=== PATIENT | female | born 1955 | race Caucasian/White ===

== ENCOUNTER 2016-10-19 06:13 | Emergency (ER) | payer BC ==
[2016-10-19 06:51] VITALS: BP 182/77
[2016-10-19] MEDS ORDERED: Ketorolac INJ* 30 MG/ML 1 ML VIAL IV ONE (07:10)
[2016-10-19 07:30] LABS: Hematocrit 42 % (35-47); Hemoglobin 13.8 g/dl (12.0-16.0); Mean Corpuscular HGB Conc 33 g/dl (31-36); Mean Corpuscular Hemoglobin 29 pg (27-31); Mean Corpuscular Volume 88 fL (80-97); Mean Platelet Volume 9 um3 (7.4-10.4); Red Blood Count 4.76 10^6/ul (4.0-5.4); Red Cell Distribution Width 14 % (10.5-15); White Blood Count 4.5 10^3/ul (3.5-10.8)
--- NOTE | 2016-10-19 07:30 | ED ---
Back Pain - HPI Summary HPI Summary: Patient presents with right lower back pain that began yesterday without injury. She had a similar episode around [place], she related to eating too much cheese, and resolved in about a week without known intervention. 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 She notices the pain when she bends, takes a deep breath, coughs, or lifts heavy objects. Her pain actually improves when she's up moving around. She denies previous injury to her back. No N/T, inability to walk, incontinence of urine or stool. No abdominal pain, urinary symptoms, constipation or flank pain. No fever, chills, N/V/D, but she did have two loose stools this AM. - History of Current Complaint Chief Complaint: EDFlankPain Stated Complaint: LOWER RT BACK PAIN Time Seen by Provider: 10/19/16 06:45 Hx Obtained From: Patient, Family/Dye And Chemical Coordinator Onset/Duration: Gradual Onset Onset/Duration: Started Days Ago - 1, Atraumatic, Still Present Timing: Constant Back Pain Location: Is Discrete @ - right SI joint Severity Initially: Moderate Severity Currently: Severe Pain Intensity: 9 Character: Sharp, Aching, Stiffness Aggravating Symptom(s): Movement, Bending Alleviating Symptom(s): Position Associated Signs And Symptoms: Positive: Negative - Allergies/Home Medications Allergies/Adverse Reactions: Allergies Allergy/AdvReac Type Severity Reaction Status Date / Time Codeine Allergy Vomiting Verified 10/19/16 06:45 Erythromycin Allergy Rash Verified 10/19/16 06:45 Morphine Allergy Vomiting Verified 10/19/16 06:45 PMH/Surg Hx/FS Hx/Imm Hx Endocrine/Hematology History: Denies: Hx Diabetes, Hx Thyroid Disease Cardiovascular History: Reports: Hx Hypertension Respiratory History: Denies: Hx Asthma, Hx Chronic Obstructive Pulmonary Disease (COPD) GI History: Denies: Hx Ulcer - Cancer History Hx Chemotherapy: No Hx Radiation Therapy: No - Surgical History Surgery Procedure, Year, and Place: hysterectomy,carpal tunnel, csrection Infectious Disease History: No Infectious Disease History: Denies: Hx Clostridium Difficile, Hx Hepatitis, Hx Human Immunodeficiency Virus (HIV), Hx of Known/Suspected MRSA, Hx Shingles, Hx Tuberculosis, Hx Known/ Suspected VRE, Hx Known/Suspected VRSA, Traveled Outside the [place] in Last 30 Days - Family History Known Family History: Positive: None - Social History Occupation: Employed Full-time Lives: With Family Alcohol Use: None Substance Use Type: Reports: None Smoking Status (MU): Never Smoked Tobacco Review of Systems Negative: Fever, Chills Negative: Chest Pain Negative: Shortness Of Breath Negative: Abdominal Pain Positive: Myalgia, Decreased ROM. Negative: Edema Negative: Bruising Negative: Weakness, Paresthesia, Numbness All Other Systems Reviewed And Are Negative: Yes Physical Exam Triage Information Reviewed: Yes Vital Signs On Initial Exam: Initial Vitals Temp Pulse Resp BP Pulse Ox 98.3 F 74 20 167/85 100 10/19/16 06:25 10/19/16 06:25 10/19/16 06:25 10/19/16 06:25 10/19/16 06:25 Vital Signs Reviewed: Yes Appearance: Positive: Well-Appearing, Well-Nourished, Pain Distress Skin: Positive: Warm, Skin Color Reflects Adequate Perfusion, Dry, Soft Head/Face: Positive: Normal Head/Face Inspection Eyes: Positive: EOMI, GIOVANA, Conjunctiva Clear ENT: Positive: Hearing grossly normal Neck: Positive: Supple, Nontender, No Lymphadenopathy Respiratory/Lung Sounds: Positive: Clear to Auscultation, Breath Sounds Present Cardiovascular: Positive: RRR Abdomen Description: Positive: Nontender, Soft. Negative: CVA Tenderness (R), CVA Tenderness (L), Distended, Guarding Bowel Sounds: Positive: Present Musculoskeletal: Positive: Limited @ - spine flexion, extension, and rotation limited due to pain, Pain @ - TTP right SI joint; non-tender over right buttock , left SI joint or left buttock; Neurological: Positive: Sensory/Motor Intact, Alert, Oriented to Person Place, Time, Reflexes Intact, NV Bundle Intact Distally, Abnormal Gait Psychiatric: Positive: Affect/Mood Appropriate AVPU Assessment: Alert - Zoila Coma Scale Coma Scale Total: 15 Diagnostics - Vital Signs Vital Signs Temp Pulse Resp BP Pulse Ox 10/19/16 06:30 64 182/77 98 10/19/16 06:25 98.3 F 74 20 167/85 100 - Laboratory Result Diagrams: 10/19/16 06:40 10/19/16 06:40 Lab Statement: Any lab studies that have been ordered have been reviewed, and results considered in the medical decision making process. - Radiology No standard instances Xray Interpretation: No Acute Changes Radiology Interpretation Completed By: Radiologist Re-Evaluation - Re-Evaluation First Eval Re-Evaluation Time: 09:40 Change: Improved - Pain improved with Toradol Back Pain Course/Dx - Diagnoses Differential Diagnosis/HQI/PQRI: Positive: Aneurysm, Cauda Equina Syndrome, Herniated Disc, Strain, Sprain Provider Diagnoses: Low back pain Discharge - Discharge Plan Condition: Stable Disposition: HOME Patient Education Materials: Low Back Strain (ED) Referrals: Sarah Chakraborty MD [Primary Care Provider] - Additional Instructions: Please use 600mg of ibuprofen three times daily with meals beginning tomorrow. Rest and use heat to allow your back to feel better. Follow-up with your primary care provider next week for evaluation. Return to the emergency department if your symptoms worsen.
[2016-10-19 07:31] LABS: Add Diff/Slide Review? Slide Review Added; Comments Flag Yes
[2016-10-19 07:35] LABS: ALT 15 U/L (7-52); AST 19 U/L (13-39); Albumin 4.4 g/dL (3.2-5.2); Alkaline Phosphatase 71 U/L (34-104); Anion Gap 6 mmol/L (2-11); BUN/Creatinine Ratio 17.3 (8-20); Blood Urea Nitrogen 13 mg/dL (6-24); C Reactive Protein < 1.00 mg/L (< 5.00); CO2 Carbon Dioxide 31 mmol/L (22-32); Calcium 10.3 mg/dL (8.6-10.3); Chloride 102 mmol/L (101-111); EGFR African American 101.7 (>60); EGFR Non-African American 79.1 (>60); Globulin 2.9 g/dL (2-4); Glucose 107 mg/dL (70-100); Potassium 4.2 mmol/L (3.5-5.0); Sodium 139 mmol/L (133-145); Total Protein 7.3 g/dL (6.4-8.9)
--- NOTE | 2016-10-19 08:02 | RAD ---
Indication: RIGHT sacroiliac joint pain; recurrent. Radiates to the RIGHT side of the back. Comparison: No relevant prior exams available on the [facility]. Technique: AP, lateral, and oblique views lumbar sacral spine. Report: Slight LEFT convex curve centered at L1-2. Negative for fracture, spondylolysis, or focal osseous lesion. Mild L4-5 disc space narrowing, multilevel facet joint osteoarthritis from L2-3 through L5-S1. Minimal grade 1 degenerative L4-5 anterolisthesis. Unremarkable bilateral sacroiliac joints. Unremarkable paraspinal soft tissue contours. IMPRESSION: 1. Mild degenerative spondylosis and facet joint osteoarthritis. 2. Unremarkable sacroiliac joints.
[2016-10-19 08:45] LABS: Urine Bilirubin Negative (Negative); Urine Glucose Negative (Negative); Urine Nitrite Negative (Negative)
== END 2016-10-19 09:57 | disposition home or self-care (01) ==
LOC: ED 06:13
DX: M54.5 Low back pain (principal); Z88.5 Allergy status to narcotic agent
CPT/HCPCS: 36415; 72110; 80053; 81003; 85025; 86140; 96374; J1885

== ENCOUNTER 2017-11-05 07:57 | Emergency (ER) | payer SELFPAY ==
[2017-11-05 08:12] VITALS: BP 152/76
--- NOTE | 2017-11-05 09:09 | RAD ---
Indication: Dizziness post fall hitting posterior head. Decreased ecchymosis since fall. Comparison: No relevant prior exams available on the [facility] for comparison. Technique: Noncontrast CT vertex of skull through foramen magnum. Report: Approximate 1 cm RIGHT parietal vertex scalp hematoma. The sulci, ventricles, and basal cisterns are normal for age. Arzate matter white matter differentiation is preserved without evidence for edema. No intra or extra axial hemorrhage, mass, or fluid collection detected. Unremarkable visualized orbital contents. Negative for calvarial or skull base fracture. The visualized paranasal sinuses and mastoid air spaces are clear. IMPRESSION: 1. Small RIGHT parietal vertex scalp hematoma. 2. Negative for fracture. 3. No CT evidence for traumatic brain injury.
--- NOTE | 2017-11-05 09:16 | UC ---
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 Negative: LOC (Time In Secs./Mins/Hrs), LOC Duration Unknown, Confusion, Memory Loss, Seizure, Epistaxis, Dental Malocclusion, Nausea, Vomiting Head: 1 - small hematoma 2 - tender 3 - tender - Allergies/Home Medications Allergies/Adverse Reactions: Allergies Allergy/AdvReac Type Severity Reaction Status Date / Time codeine Allergy vomit Verified 11/05/17 08:07 erythromycin base Allergy Rash Verified 11/05/17 08:08 morphine Allergy vomit Verified 11/05/17 08:07 PMH/Surg Hx/FS Hx/Imm Hx Previously Healthy: Yes - Surgical History Surgical History: Yes Surgery Procedure, Year, and Place: hysterectomy,carpal tunnel, - Family History Known Family History: Positive: Hypertension - Social History Alcohol Use: None Substance Use Type: None Smoking Status (MU): Never Smoked Tobacco Review of Systems Constitutional: Negative Skin: Negative Eyes: Negative ENT: Negative Respiratory: Negative Cardiovascular: Negative Gastrointestinal: Negative Genitourinary: Negative Motor: Negative Neurovascular: Negative Musculoskeletal: Negative Neurological: Headache Psychological: Negative Is Patient Immunocompromised?: No All Other Systems Reviewed And Are Negative: Yes Physical Exam Triage Information Reviewed: Yes Appearance: Well-Appearing, No Pain Distress, Well-Nourished Vital Signs: Initial Vital Signs Temp 98.7 F 11/05/17 08:09 Pulse 56 11/05/17 08:09 Resp 16 11/05/17 08:09 BP 152/76 11/05/17 08:09 Pulse Ox 100 11/05/17 08:09 Vital Signs Reviewed: Yes Eyes: Positive: Conjunctiva Clear ENT: Positive: Hearing grossly normal, TMs normal - left OK/right unable to vis due to cerumen. Negative: Nasal congestion, Nasal drainage, Dental tenderness, Sinus tenderness, Uvula midline Neck: Positive: Supple, Nontender Respiratory: Positive: Lungs clear, Normal breath sounds, No respiratory distress Cardiovascular: Positive: RRR, No Murmur Musculoskeletal: Positive: ROM Intact, No Edema Neurological: Positive: Alert, Muscle Tone Normal, Other: - GCS 15/15, slightly unsteady wide based gait Psychological Exam: Normal Skin Exam: Normal Head Injury Course/Dx - Differential Dx/Diagnosis Provider Diagnoses: concussion. cervical strain. scalp contusion Discharge - Discharge Plan Condition: Stable Disposition: HOME Patient Education Materials: Concussion (ED) Forms: *Work Release Referrals: Sarah Chakraborty MD [Primary Care Provider] - Additional Instructions: rest tylenol ice recheck this weekend unless you are completely symptom free
== END 2017-11-05 09:32 | disposition home or self-care (01) ==
LOC: UCEAST 07:57
DX: S06.0X0A Concussion without loss of consciousness, initial encounter (principal); S16.1XXA Strain of muscle, fascia and tendon at neck level, initial encounter; S00.03XA Contusion of scalp, initial encounter; W00.0XXA Fall on same level due to ice and snow, initial encounter; Y92.9 Unspecified place or not applicable; Z88.5 Allergy status to narcotic agent; Z88.3 Allergy status to other anti-infective agents
CPT/HCPCS: 70450; 99211; G0463

== ENCOUNTER 2017-11-11 07:35 | Emergency (ER) | payer SELFPAY ==
[2017-11-11 07:55] VITALS: BP 113/73
--- NOTE | 2017-11-19 07:40 | UC ---
Terry Cristobal Nikita, scribed for Ester Arnold DO on 11/11/17 at 0808 . Head Injury HPI - HPI Summary HPI Summary: This patient is a 61 year old F presenting to [facility] with a chief complaint of head pain re-check since 11/05/17 s/p being seen at [facility]. Pt fell on ice and hit the back of her head on 11/03/17. The CC is described as off in the head and alleviated a bit since onset. The patient rates the pain 0/10 in severity. Symptoms aggravated by nothing. Symptoms alleviated by nothing. Patient reports head pain, aphasia after onset but has since alleviated, fatigue, cough ( secondary to cold since yesterday), mild confusion, [place] (secondary to cough), dizziness (aggravated by turning her head), and trouble falling back asleep ( secondary to head pain). Patient denies mood, vision, and hearing changes. - History Of Current Complaint Chief Complaint: UCHeadInjury Stated Complaint: HEAD PAIN FROM INJURY RECHECK Time Seen by Provider: 11/11/17 07:56 Hx Obtained From: Patient Onset/Duration: Sudden Onset, Lasting Days, Resolved Severity Currently: None Pain Intensity: 0 Pain Scale Used: 0-10 Numeric Aggravating Factor(s): Nothing Alleviating Factor(s): Nothing Associated Signs And Symptoms: Positive: Other - Patient reports head pain, aphasia after onset but has since alleviated, fatigue, cough (secondary to cold since yesterday), mild confusion, [place] (secondary to cough), dizziness ( aggravated by turning her head), and trouble falling back asleep (secondary to head pain). Patient denies mood, vision, and hearing changes. - Allergies/Home Medications Allergies/Adverse Reactions: Allergies Allergy/AdvReac Type Severity Reaction Status Date / Time codeine Allergy vomit Verified 11/05/17 08:07 erythromycin base Allergy Rash Verified 11/05/17 08:08 morphine Allergy vomit Verified 11/05/17 08:07 Home Medications: Home Medications Atenolol TAB* [Tenormin TAB* 25 MG] 25 mg PO DAILY 11/11/17 [History Confirmed 11/11/17] PMH/Surg Hx/FS Hx/Imm Hx Cardiovascular History: Hypertension Respiratory History: Bronchitis - Surgical History Surgical History: Yes Surgery Procedure, Year, and Place: hysterectomy,carpal tunnel, , rotator cuff - Family History Known Family History: Positive: Hypertension, Other Family History: breast CA - Social History Alcohol Use: Occasionally Substance Use Type: None Smoking Status (MU): Never Smoked Tobacco Review of Systems Constitutional: Fatigue Eyes: Other - denies vision changes ENT: Other - denies hearing changes Respiratory: Cough - secondary to cold since yesterday Musculoskeletal: Other: - head pain Neurological: Other - mild confusion, [place] (secondary to cough), dizziness ( aggravated by turning her head), and trouble falling back asleep (secondary to head pain), aphasia after onset but has since alleviated Psychological: Other - denies mood changes All Other Systems Reviewed And Are Negative: Yes Physical Exam Triage Information Reviewed: Yes Appearance: Well-Appearing, No Pain Distress, Well-Nourished Vital Signs: Initial Vital Signs Temp 98.7 F 11/11/17 07:44 Pulse 70 11/11/17 07:44 Resp 16 11/11/17 07:44 BP 113/73 11/11/17 07:44 Pulse Ox 98 11/11/17 07:44 Vital Signs Reviewed: Yes Eyes: Positive: Conjunctiva Clear. Negative: Discharge ENT: Positive: Hearing grossly normal. Negative: Muffled voice, Hoarse voice Neck exam: Normal Neck: Positive: Supple Respiratory: Positive: Lungs clear, Normal breath sounds, No respiratory distress, No accessory muscle use Cardiovascular: Positive: RRR, No Murmur Musculoskeletal Exam: Normal Neurological: Positive: Alert, Muscle Tone Normal, Other: - Tenderness to palpation over the occipital eminence; A&Ox3, CN II-XII INTACT, SENSORY MOTOR INTACT, REFLEXES INTACT, NO CEREBELLAR SIGNS, FACIAL SYMMETRY, NEGATIVE [place]BER[place] , NORMAL GAIT Psychological Exam: Normal Psychological: Positive: Age Appropriate Behavior Skin Exam: Normal, Other - Warm, Dry, Normal color Head Injury Course/Dx - Course Course Of Treatment: Patient will be discharged and follow up from PCP. The patient is agreeable with this plan. Medications reviewed. Allergies reviewed. - Differential Dx/Diagnosis Differential Diagnosis/HQI/PQRI: Other - Concussion and post-concussion syndrome Provider Diagnoses: concussion and post-concussion syndrome Discharge - Discharge Plan Condition: Stable Disposition: HOME Patient Education Materials: Concussion (ED), Post Concussion Syndrome (ED) Forms: *Work Release Referrals: Sarah Chakraborty MD [Primary Care Provider] - (Follow up in 1-3 days) Additional Instructions: At [facility], you were instructed to be on brain rest until all your symptoms are gone. That means no more TV, no talking with friends on the phone, no reading, and any other kinds of activities that may stimulate your brain. When your symptoms are gone completely, you can start with small activities like reading for 15 minutes. If you continue to be symptom free, you can gradually increase the amount of time you spend doing something or try different activities to 30 minutes then an hour and so on. If at any point your symptoms return, then we recommend that you continue to be on brain rest. Remember, people who give themselves brain rest as completely as possible are the ones who are least likely to have chcf symptoms. Go home and be bored. As discussed, we can reccomend 2 modalities that might help you recover from concussion more quickly: accupuncture and osteopathy. The following are 3 are 3 local accupuncturists [facility] - Alysia Olguin L.Ac. Acupuncture clinic in [place], [place] Address: [address] [place] [address] [facility] Acupuncture clinic in [place], [place] Address: [address] [place] [address] [facility] and Humaira Noland [phone] YOU WOULD LIKELY BENEFIT FROM OSTEOPATHIC MANIPULATION. WE RECOMMEND THAT YOU FIND AN OSTEOPATHIC PHYSICIAN IN YOUR AREA WHO DOES LYMPHATIC, MYOFACIAL AND VISCERAL WORK The documentation as recorded by the Terry dong Nikita accurately reflects the service I personally performed and the decisions made by , Ester Arnold DO.
== END 2017-11-11 09:01 | disposition home or self-care (01) ==
LOC: UCEAST 07:35
DX: F07.81 Postconcussional syndrome (principal); G44.309 Post-traumatic headache, unspecified, not intractable; R53.83 Other fatigue; R05 Cough; I10 Essential (primary) hypertension; Z88.5 Allergy status to narcotic agent
CPT/HCPCS: 99211; G0463

== ENCOUNTER 2017-11-15 07:59 | Emergency (ER) | payer SELFPAY ==
[2017-11-15 08:55] VITALS: BP 132/66
--- NOTE | 2017-11-15 09:34 | UC ---
Head Injury HPI - HPI Summary HPI Summary: Patient presents for recheck on concussion; initially sustained concussion on 11/03,when she slipped on ice and hit back of head on sidewalk, no LOC just occiptal scalp tenderness, fogginess is improving denies nausea or visual changes. Pt also c/o chesty cough w/o sputum,f/c sx controlled on OTC meds [ End ] - History Of Current Complaint Chief Complaint: UCHeadInjury Stated Complaint: FOLLOW UP HEAD INJURY Time Seen by Provider: 11/15/17 09:26 Hx Obtained From: Patient Hx From Patient Unobtainable Due To: Other ?: No Onset/Duration: Lasting Days Severity Currently: None Pain Intensity: 0 - Allergies/Home Medications Allergies/Adverse Reactions: Allergies Allergy/AdvReac Type Severity Reaction Status Date / Time codeine Allergy vomit Verified 11/15/17 08:47 erythromycin base Allergy Rash Verified 11/15/17 08:47 morphine Allergy vomit Verified 11/15/17 08:47 PMH/Surg Hx/FS Hx/Imm Hx Previously Healthy: Yes - Surgical History Surgical History: Yes Surgery Procedure, Year, and Place: hysterectomy,carpal tunnel, , rotator cuff - Family History Known Family History: Positive: None, Hypertension - Social History Alcohol Use: Occasionally Substance Use Type: None Smoking Status (MU): Never Smoked Tobacco Review of Systems Constitutional: Negative Skin: Negative Eyes: Negative ENT: Negative Respiratory: Cough Cardiovascular: Negative Gastrointestinal: Negative Genitourinary: Negative Motor: Negative Neurovascular: Negative Musculoskeletal: Negative Neurological: Negative, Other - [place] resolved Psychological: Negative Is Patient Immunocompromised?: No All Other Systems Reviewed And Are Negative: Yes Physical Exam Triage Information Reviewed: Yes Appearance: Well-Appearing Vital Signs: Initial Vital Signs Temp 37.3 C 11/15/17 08:43 Pulse 75 11/15/17 08:43 Resp 18 11/15/17 08:43 BP 132/66 11/15/17 08:43 Pulse Ox 98 11/15/17 08:43 Eye Exam: Normal ENT Exam: Normal Dental Exam: Normal Neck exam: Normal Neck: Positive: 1 Respiratory Exam: Normal Respiratory: Positive: Lungs clear, No respiratory distress, Rhonchi - mild. 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 Post-concussion follow up Discharge - Discharge Plan Condition: Stable Disposition: HOME Patient Education Materials: Post Concussion Syndrome (ED), Acute Bronchitis ( ED) Forms: *Work Release Referrals: Sarah Chakraborty MD [Primary Care Provider] -
== END 2017-11-15 09:49 | disposition home or self-care (01) ==
LOC: UCEAST 07:59
DX: S06.0X0D Concussion without loss of consciousness, subsequent encounter (principal); W00.0XXD Fall on same level due to ice and snow, subsequent encounter; J40 Bronchitis, not specified as acute or chronic; Z88.5 Allergy status to narcotic agent
CPT/HCPCS: 99211; G0463

== ENCOUNTER 2017-11-17 07:20 | Emergency (ER) | payer BC ==
[2017-11-17 07:37] VITALS: BP 140/85
--- NOTE | 2017-11-17 08:24 | RAD ---
HISTORY: Productive cough COMPARISONS: February 08, 2015 VIEWS: 4: Frontal dual-energy and lateral views of the chest. FINDINGS: CARDIOMEDIASTINAL SILHOUETTE: The cardiac silhouette is enlarged, with left ventricular hypertrophy on the lateral projection.. The cardiomediastinal silhouette is otherwise normal. LAINE: The laine are normal. PLEURA: The costophrenic angles are sharp. No pleural abnormalities are noted. LUNG PARENCHYMA: The lungs are clear. ABDOMEN: The upper abdomen is clear. There is no subphrenic gas. BONES AND SOFT TISSUES: No bone or soft tissue abnormalities are noted. OTHER: None. IMPRESSION: CARDIOMEGALY. NO ACTIVE CARDIOPULMONARY DISEASE.
--- NOTE | 2017-11-17 08:40 | UC ---
Jame Cristobal Nilda, scribed for Alan Jones MD on 11/17/17 at 0744 . Respiratory Complaint HPI - HPI Summary HPI Summary: This patient is a 61 year old F [place] [facility] [place] chief complaint of constant productive cough (phlegm swallowed) for the past 3 days. Symptoms aggravated and alleviated by nothing. Patient reports chest congestion but denies fever. Patient states 3 days ago she was diagnosed with bronchitis and told to treat it with OTC medication, but symptoms have worsened. - History of Current Complaint Stated Complaint: CHEST CONGESTION Time Seen by Provider: 11/17/17 07:28 Hx Obtained From: Patient Onset/Duration: Sudden Onset, Lasting Days, Still Present Timing: Constant Severity Currently: Moderate Pain Intensity: 4 Pain Scale Used: 0-10 Numeric Character: Cough: Productive Aggravating Factors: Nothing Alleviating Factors: Nothing Associated Signs And Symptoms: Negative: Fever - Allergies/Home Medications Allergies/Adverse Reactions: Allergies Allergy/AdvReac Type Severity Reaction Status Date / Time codeine Allergy vomit Verified 11/17/17 07:34 erythromycin base Allergy Rash Verified 11/17/17 07:34 morphine Allergy vomit Verified 11/17/17 07:34 PMH/Surg Hx/FS Hx/Imm Hx Cardiovascular History: Hypertension - Surgical History Surgical History: Yes Surgery Procedure, Year, and Place: hysterectomy,carpal tunnel, , rotator cuff - Family History Known Family History: Positive: Hypertension, Diabetes, Other - depression - Social History Alcohol Use: Occasionally Substance Use Type: None Smoking Status (MU): Never Smoked Tobacco Review of Systems Constitutional: Other - negative fever Respiratory: Cough, Other - chest congestion All Other Systems Reviewed And Are Negative: Yes Physical Exam Triage Information Reviewed: Yes Vital Signs: Initial Vital Signs Temp 98.3 F 11/17/17 07:35 Pulse 65 11/17/17 07:35 Resp 16 11/17/17 07:35 BP 140/85 11/17/17 07:35 Pulse Ox 97 11/17/17 07:35 Vital Signs Reviewed: Yes - Additional Comments VITAL SIGNS: Reviewed. GENERAL: Patient is a well developed and nourished F who is lying comfortable in the stretcher. Patient is not in any acute respiratory distress. HEAD AND FACE: Normocephalic EYES: PERRLA, EOMI x 2. EARS: Hearing grossly intact. MOUTH: Oropharynx within normal limits. NECK: Supple, trachea is midline, no adenopathy, no JVD, no carotid bruit. CHEST: Symmetric, no tenderness at palpation LUNGS: Clear to auscultation bilaterally. No wheezing or crackles. CVS: Regular rate and rhythm, S1 and S2 present, no murmurs or gallops appreciated. ABDOMEN: Soft, non-tender. Bowel sounds are normal. No abdominal abnormal pulsations. EXTREMITIES: Full ROM in all major joints, no edema, no cyanosis or clubbing. NEURO: Alert and oriented x 3. No acute neurological deficits. Speech is normal and follows commands. SKIN: Dry and warm UC Diagnostic Evaluation - Laboratory O2 Sat by Pulse Oximetry: 97 - Radiology Radiology Interpretation Completed By: Radiologist - CXR, per radiologist, reveals cardiomegaly. No active cardiopulmonary disease. Dr. Jones has reviewed this report. Re-Evaluation - Re-Evaluation First Eval Re-Evaluation Time: 08:22 Comment: Reviewed labs and imaging with patient as well as D/C plan Respiratory Course/Dx - Course Course Of Treatment: This patient is a 61 year old F presenting [place] [facility] [place] a chief complaint of constant productive cough (phlegm swallowed) for the past 3 days. Symptoms aggravated and alleviated by nothing. Patient reports chest congestion but denies fever. Patient states 3 days ago she was diagnosed with bronchitis and told to treat it with OTC medication, but symptoms have worsened. Influenza A and B negative. CXR, per radiologist, reveals cardiomegaly. No active cardiopulmonary disease. Dr. Jones has reviewed this radiology report. Medications given. The patient is hemodynamically stable, alert and oriented x3. Patient is Dx with URI. I discussed all the findings and test results with the patient. Pt was instructed to return to the urgent care or go to ER immediately if any of the symptoms return or worsens. Plan of care was discussed with the patient and pt understands and agrees. All questions were answered to patient satisfaction. There were no further complaints or concerns. - Differential Dx/Diagnosis Differential Diagnosis/HQI/PQRI: Asthma, Bronchitis, Influenza, Laryngitis, Lower Resp Infection, Sinusitis Provider Diagnoses: URI Discharge - Discharge Plan Condition: Stable Disposition: HOME Prescriptions: guaiFENesin ER TAB [Mucinex*] 600 mg PO BID #12 tab.er Patient Education Materials: Antitussives (By mouth), Chronic Cough (ED) Referrals: Sarah Chakraborty MD [Primary Care Provider] - Additional Instructions: Take medications as instructed Increase your fluid intake Return to the UC if symptoms worsen The documentation as recorded by the Jame dong Nilda accurately reflects the service I personally performed and the decisions made by me, Alan Jones MD.
== END 2017-11-17 08:28 | disposition home or self-care (01) ==
LOC: UCEAST 07:20
DX: J06.9 Acute upper respiratory infection, unspecified (principal)
CPT/HCPCS: 71046; 87502; 99212; G0463